=== PATIENT | male | born 1975 | race Caucasian/White ===

== ENCOUNTER → 2019-10-10 | Outpatient (CLI) | payer OTHER | END | disposition home or self-care (01) | LOC: RAD 13:29 | PROVIDERS: ATTEND General Practice | DX: M54.5 Low back pain (principal) ==

== ENCOUNTER 2019-10-15 10:43 | Emergency (ER) | payer OTHER | END 2019-10-15 12:16 | disposition home or self-care (01) | LOC: ER 10:43 | DX: M62.830 Muscle spasm of back (principal); M54.5 Low back pain ==